=== PATIENT | female | born 1955 ===

== ENCOUNTER 2022-04-16 10:29 | Day surgery (SDC) | payer MEDICARE, BC ==
[~2022-04-16 10:29] MED LIST: Acetaminophen 325 MG Tab PO PRN; Acetaminophen/Codeine 300-30 MG Tab PO PRN; Ondansetron 4 MG/2 ML SDV IVPUSH PRN
[2022-04-16] MEDS ORDERED: Propofol 200 MG/20 ML SDV IV ONE (10:30)
[2022-04-16] MEDS: Proparacaine 0.5% Ophth Soln 15 ML Bottle EYELF ONE ×2 (10:45→11:24)
[2022-04-16] MEDS: Moxifloxacin 0.5% Ophth Soln 3 ML Bottle EYELF ONE (10:46)
[2022-04-16] MEDS: Povidone-Iodine 5% Sterile Ophth Soln 30 ML Bottle EYELF ONE ×2 (10:47→11:25)
[2022-04-16] MEDS: Tropicamide 1% Ophth Soln 15 ML Bottle EYELF ONE (10:47)
[2022-04-16] MEDS: Phenylephrine 10% Ophth Soln 5 ML Bot EYELF PRN (10:48)
[2022-04-16] MEDS: Timolol Maleate 0.5% Ophth Soln 5 ML Bottle EYELF ONE (10:49)
[2022-04-16] MEDS: Cataract Ophth Solution EYELF ONE (10:50)
[2022-04-16] MEDS: Sodium Chloride 0.9% 10 ML Syringe FLUSH PRN (10:59)
[2022-04-16] MEDS: Apraclonidine 0.5% Ophth Soln 5 ML Bot EYELF ONE (11:26)
[2022-04-16] MEDS: Diclofenac Sodium 0.1% Ophth Soln 5 ML Bottle EYELF ONE (11:26)
[2022-04-16] MEDS: Lidocaine 1% 30 ML SDV ONE (11:27)
[2022-04-16] MEDS: Dexamethasone/Neomycin/Polymyxin B Ophth Oint 3.5 GM Tube EYELF ONE (11:27)
[2022-04-16] MEDS: Balanced Salt Solution Ophth Irrig 500 ML Bottle IOCULAR ONE (11:28)
[2022-04-16] MEDS: Vancomycin 500 MG SDV EYELF ONE (11:29)
[2022-04-16] MEDS: Chondroitin Sulfate/Hyaluronate Sodium Ophth Inj 0.75 ML Syringe EYELF ONE (11:30)
== END 2022-04-16 12:35 | disposition home or self-care (01) ==
LOC: DL.SDS 10:29
PROVIDERS: ATTEND Ophthalmology
DX: H25.812 Combined forms of age-related cataract, left eye (principal); I10 Essential (primary) hypertension; G47.00 Insomnia, unspecified; E78.00 Pure hypercholesterolemia, unspecified; M25.511 Pain in right shoulder; Z79.899 Other long term (current) drug therapy; Z98.890 Other specified postprocedural states
CPT/HCPCS: 00142; A9270-GY; J2704; J3370; J3490; V2788-GY

== ENCOUNTER 2022-04-30 09:53 | Day surgery (SDC) | payer MEDICARE, BC ==
[2022-04-30] MEDS ORDERED: Ondansetron 4 MG/2 ML SDV IV ONE (09:54)
[2022-04-30] MEDS ORDERED: Sodium Chloride 0.9% 10 ML Syringe IV ONE (09:54)
[2022-04-30] MEDS ORDERED: Propofol 200 MG/20 ML SDV IV ONE (09:54)
[2022-04-30] MEDS ORDERED: Dexamethasone 4 MG/ML SDV IV ONE (09:54)
[2022-04-30] MEDS ORDERED: Lidocaine 1% 5 ML VIAL ONE ×2 (09:54→11:10)
[2022-04-30] MEDS ORDERED: Sodium Chloride 0.9% 10 ML Syringe FLUSH PRN (10:00)
[2022-04-30] MEDS ORDERED: Acetaminophen 325 MG Tab PO PRN (10:00)
[2022-04-30] MEDS ORDERED: Proparacaine 0.5% Ophth Soln 15 ML Bottle EYERT ONE (10:00)
[2022-04-30] MEDS ORDERED: Moxifloxacin 0.5% Ophth Soln 3 ML Bottle EYERT ONE (10:00)
[2022-04-30] MEDS ORDERED: Tropicamide 1% Ophth Soln 15 ML Bottle EYERT ONE (10:00)
[2022-04-30] MEDS ORDERED: Povidone-Iodine 5% Sterile Ophth Soln 30 ML Bottle EYERT ONE ×2 (10:00→11:07)
[2022-04-30] MEDS ORDERED: Phenylephrine 10% Ophth Soln 5 ML Bot EYERT PRN (10:00)
[2022-04-30] MEDS ORDERED: Ondansetron 4 MG/2 ML SDV IVPUSH PRN (10:00)
[2022-04-30] MEDS ORDERED: Cataract Ophth Solution EYERT ONE (10:00)
[2022-04-30] MEDS ORDERED: Acetaminophen/Codeine 300-30 MG Tab PO PRN (10:00)
[2022-04-30] MEDS ORDERED: Timolol Maleate 0.5% Ophth Soln 5 ML Bottle EYERT ONE (10:00)
[2022-04-30] MEDS ORDERED: Tetracaine HCl/PF 0.5% 4 ML Bottle EYERT ONE (11:07)
[2022-04-30] MEDS ORDERED: Apraclonidine 0.5% Ophth Soln 5 ML Bot EYERT ONE (11:08)
[2022-04-30] MEDS ORDERED: Diclofenac Sodium 0.1% Ophth Soln 5 ML Bottle EYERT ONE (11:09)
[2022-04-30] MEDS ORDERED: Dexamethasone/Neomycin/Polymyxin B Ophth Oint 3.5 GM Tube EYERT ONE (11:09)
[2022-04-30] MEDS ORDERED: Balanced Salt Solution Ophth Irrig 500 ML Bottle IOCULAR ONE (11:10)
[2022-04-30] MEDS ORDERED: Chondroitin Sulfate/Hyaluronate Sodium Ophth Inj 0.75 ML Syringe EYERT ONE (11:11)
[2022-04-30] MEDS ORDERED: Vancomycin 500 MG SDV EYERT ONE (11:11)
== END 2022-04-30 12:05 | disposition home or self-care (01) ==
LOC: DL.SDS 09:53
PROVIDERS: ATTEND Ophthalmology
DX: H25.811 Combined forms of age-related cataract, right eye (principal); I10 Essential (primary) hypertension; E78.00 Pure hypercholesterolemia, unspecified; Z79.899 Other long term (current) drug therapy; Z98.890 Other specified postprocedural states; Z90.710 Acquired absence of both cervix and uterus
CPT/HCPCS: 00142; 66982; A9270; J1100; J2405; J2704; J3370; J3490